=== PATIENT | female | born 1985 ===

== ENCOUNTER 2024-03-29 11:12 | Inpatient (IN) | payer OTHER ==
[~2024-03-29] VITALS: Ht 170.2 cm; Wt 63.5 kg
[2024-04-01] MEDS ORDERED: CEFAZOLIN SODIUM 1,000 MG VIAL IV ONE (15:15)
[2024-04-01] MEDS ORDERED: VISTASEAL DUAL APPICATOR 1 EACH APPL TOP ONE (15:15)
[2024-04-01] MEDS ORDERED: THROMBIN,HU/FIBRINOGEN/CALCIUM 10 ML SYRINGE TOP ONE (15:15)
[2024-04-01] MEDS ORDERED: CEFOXITIN SODIUM 2,000 MG VIAL IV SCH (16:08)
[2024-04-01] MEDS ORDERED: RINGERS SOLUTION,LACTATED 1,000 ML IV SCH (16:08)
[2024-04-01] MEDS ORDERED: ONDANSETRON HCL 2 MG/ML VIAL IV SCH (16:08)
[2024-04-01] MEDS ORDERED: GABAPENTIN 100 MG CAPSULE PO SCH (17:00)
[2024-04-01] MEDS ORDERED: CELECOXIB 200 MG CAPSULE PO SCH (17:00)
[2024-04-01] MEDS ORDERED: ACETAMINOPHEN 325 MG TABLET PO SCH (18:00)
[2024-04-01 18:41] LABS: HEMATOCRIT 30.9 % (36.0-45.00); HEMOGLOBIN 10.1 g/dL (12.0-15.00); MEAN CELL VOLUME 73.2 fL (80.00-100.00); MEAN CORPUSCULAR HEMOGLOBIN 23.9 pg (27.00-32.0); MEAN CORPUSCULAR HGB CONC 32.7 g/dl (32.0-36.0); PLATELET COUNT 281 K/uL (150-450); RED BLOOD COUNT 4.21 M/uL (4.00-6.00); RED CELL DISTRIBUTION WIDTH 19.4 % (11.5-14.5)
[2024-04-01 19:11] LABS: CALCIUM 8.7 mg/dL (8.5-10.1); CREATININE SERUM 0.53 mg/dL (0.55-1.02); GFR 129.8; POTASSIUM 4.37 mEq/L (3.5-5.1)
== END 2024-04-02 12:38 | disposition home or self-care (01) | DRG 743 ==
LOC: O/R 04-01 05:13 → SURH 04-01 11:11 → OB/GYN 04-01 19:27
PROVIDERS: ADMIT Obstetrics & Gynecology Gynecology; ATTEND Obstetrics & Gynecology Gynecology
PROC: 0UT74ZZ Resection of Bilateral Fallopian Tubes, Percutaneous Endoscopic Approach (ICD-10-PCS; 2024-04-01)
PROC: 0UT14ZZ Resection of Left Ovary, Percutaneous Endoscopic Approach (ICD-10-PCS; 2024-04-01)
PROC: 0WBH4ZZ Excision of Retroperitoneum, Percutaneous Endoscopic Approach (ICD-10-PCS; 2024-04-01)
PROC: 0UT94ZZ Resection of Uterus, Percutaneous Endoscopic Approach (ICD-10-PCS; principal; 2024-04-01 16:30)
DX: D25.2 Subserosal leiomyoma of uterus (principal); D25.0 Submucous leiomyoma of uterus; N80.3C2 Endometriosis of the left uterosacral ligament, unspecified depth; N83.02 Follicular cyst of left ovary; N80.03 Adenomyosis of the uterus; N80.102 Endometriosis of left ovary, unspecified depth